=== PATIENT | female | born 1990 | race Caucasian/White ===

== ENCOUNTER 2024-02-19 09:43 | Inpatient (IN) | payer OTHER ==
[2024-02-19] VITALS (29 sets, daily range): BP systolic 103–156; BP diastolic 53–90; PULSE 57–90; TEMP 97.5–98.8
[~2024-02-19] VITALS: Ht 165.1 cm; Wt 99.5 kg
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
[2024-02-19] MEDS ORDERED: LR 500 ML IV ONE (10:30)
[2024-02-19] MEDS ORDERED: LR 1,000 ML IV PRN ×3 (10:30→14:45)
--- NOTE | 2024-02-19 10:45 | NUR ---
RN CALLED TO PT BEDSIDE AT 1030, OBSERVED PT COUGHING FREQUENTLY AND ASKING IF HER "FLUIDS CAN BE SLOWED DOWN I FEEL LIKE I AM DROWNING." THIS RN SLOWS LR DRIP AND ASKS THE PT WHERE SHE IS UNCOMFORTABLE, PT REPORTS HER CHEST FELT HEAVY AND SHE STARTED TO FEEL NAUSEOUS QUICKLY. DIFFICULT TO TRACE FHR AND TOCO DUE TO PT HABITUS AND POSITION. THIS RN TALKS WITH PT ABOUT HOW SHE IS FEELING AND PT EXCLAIMS "IT IS STARTING TO GO AWAY IT FEELS BETTER ALREADY SITTING UP." PT POSITION CHANGED TO LAYING ON HER LEFT SIDE TO TRACE FHR AND CONTRACTIONS. PT VERBALLY UNDERSTANDING AND COUGHING LESS FREQUENT AT 1045
--- NOTE | 2024-02-19 11:15 | NUR ---
THIS RN NOTIFIES OF SVE /3. FHR BASELINE 150'S, NO ACCELS, MINIMAL VARIABILTY, RECURRENT LATE VARIABLES, PT FLUID BOLUS OF 500ML COMPLETED. PT VS STABLE AND CTX Q 4-5 MIN. RESPONDS "LET'S ADMIT THE PT FOR LABOR, I WILL BE IN SOON TO CHECK ON HER."
[2024-02-19] MEDS ORDERED: LR 1,000 ML IV SCH ×2 (11:45→12:45)
[2024-02-19] MEDS ORDERED: Penicillin G Potassium 5,000,000 UNITS in NS 100 ML IV ONE (11:45)
[2024-02-19] MEDS ORDERED: LR & Oxytocin 500 ML IV SCH (11:45)
--- NOTE | 2024-02-19 12:00 | NUR ---
PT AMBULATORY TO BATHROOM WITH THIS RN ASSISTING PT GOWN CHANGE. PT AWAKE AND ALERT X3, DISCONNECTED FROM EFM AND TOCO SO UNABLE TO TRACE FHR AND CONTRACTIONS. PT VS TAKEN ONCE PT BACK IN BED AT 1200, VS STABLE AND AT PT BEDSIDE. DISCUSSES PT LABOR ADMISSTION AND PLAN OF CARE. PT AND PT SPOUSE VERBALLY UNDERSTANDING.
--- NOTE | 2024-02-19 12:15 | NUR ---
PT REPORTING SHE WOULD LIKE EPIDURAL, JAZIEL CHAPMAN CALLED PER THIS RN. NOTIFIED.
[2024-02-19 12:16] LABS: BASO # 0.1 K/mm3 (0.0-0.2); BASO % 0.4 % (0.0-2.0); EOS # 0.2 K/mm3 (0.0-0.7); EOS % 1.7 % (0.0-4.0); GRAN # 9.5 K/mm3 (1.4-6.5); GRAN % 78.9 % (42.2-75.2); HEMOGLOBIN 12.9 g/dl (12.5-16.0); LYMPH # 1.5 K/mm3 (1.2-3.4); LYMPH % 12.6 % (20.0-51.0); MEAN CELL VOLUME 91 fl (80.0-100.0); MEAN CORPUSCULAR HEMOGLOBIN 31 pg (27-31); MEAN CORPUSCULAR HGB CONC 34 g/dl (33.0-37.0); MEAN PLATELET VOLUME 11.8 fl (7.4-10.4); MONO # 0.7 K/mm3 (0.1-0.6); MONO % 5.7 % (1.7-9.3); PLATELET COUNT 199 K/mm3 (130-400); RED BLOOD COUNT 4.19 M/mm3 (4.10-5.30); REDCELL DISTRIBUTION WIDTH-CV 13.2 % (11.5-14.5)
[2024-02-19] MEDS ORDERED: Ondansetron 4 MG/2 ML VIAL IV SCH (12:45)
--- NOTE | 2024-02-19 12:45 | NUR ---
1233 AT PT BEDSIDE DISCUSSING NON-REASSURING HEART TONES AND NEXT PLAN OF CARE FOR LABOR WITH PT AND PT SPOUSE. DISCUSSES OPTIONS AND CONCERNS WITH HEART TONES AND LEAVES PT ROOM TO LET PT DISCUSS OPTIONS WITH PT SPOUSE. THIS RN REMAINS AT PT BEDSIDE TO BEGIN SECOND LR FLUID BAG AND MONITOR FHR. 1240 PT AND PT SPOUSE DECIDE ON SECTION AFTER DISCUSSING OPTIONS WITH . , CHARGE NURSE, JAZIEL AUTOMATIC QUILLING MACHINE OPERATOR, AND NURSERY NURSE NOTIFIED OF PT DECISION AND PT PREPAIRED FOR PRIMARY SECTION.
[2024-02-19] MEDS ORDERED: Ondansetron 4 MG/2 ML VIAL ONE (13:26)
[2024-02-19] MEDS ORDERED: dexAMETHasone 10 MG/ML VIAL ONE (13:26)
[2024-02-19] MEDS ORDERED: Oxytocin 10 UNITS/ML VIAL ONE (13:26)
[2024-02-19] MEDS ORDERED: Ketorolac 30 MG/ML VIAL ONE (13:26)
[2024-02-19] MEDS ORDERED: NS 10 ML IV ONE (13:26)
[2024-02-19] MEDS ORDERED: LR 1,000 ML IV ONE (13:38)
[2024-02-19] MEDS ORDERED: oxyCODONE 5 MG TAB PO PRN (14:15)
[2024-02-19] MEDS ORDERED: Naloxone 0.4 MG/ML VIAL IV PRN ×2 (14:15→14:45)
[2024-02-19] MEDS ORDERED: Loratadine 10 MG TAB PO PRN ×2 (14:15→14:45)
[2024-02-19] MEDS ORDERED: Ondansetron 4 MG/2 ML VIAL IV PRN ×2 (14:15→14:45)
[2024-02-19] MEDS ORDERED: Measles/Mumps/Rubella Virus Vaccine Live w Diluent 0.5 ML VIAL SQ SCH ×2 (14:15→14:45)
[2024-02-19] MEDS ORDERED: Magnes Hydrox (MOM) 80 MG/ML 30 ML CUP PO PRN ×2 (14:15→14:45)
[2024-02-19] MEDS ORDERED: Acetaminophen 500 MG TAB PO SCH (14:15)
[2024-02-19] MEDS ORDERED: Penicillin G Potassium 2,500,000 UNITS in NS 100 ML IV SCH (15:38)
[2024-02-19] MEDS ORDERED: Sennosides/Docusate 8.6-50 MG TAB PO SCH ×2 (17:00)
--- NOTE | 2024-02-19 19:37 | NUR ---
THIS RN UPDATES PT AND PT SPOUSE ON ROLES ADMISSION STATUS AND CHANGE IN PLAN OF CARE. PT VERBALLY UNDERSTANDING AND UP TO ABULATE TO BATHROOM, PT DISCONNECTED FROM EFM AND TOCO, PT AWAKE AND ALERT X3
[2024-02-19] MEDS ORDERED: Ibuprofen 800 MG TAB PO SCH (20:10)
--- NOTE | 2024-02-19 20:45 | NUR ---
pt able to move feet, bend knees. Pt assisted to move to edge of bed. Minimal assist of 1 to stand at bedside. Unable to lock legs or pick either foot off floor. Assisted to bettie back back on edge of bed. Did sit to stand 1 more time, pt wobbly. Back onto bed without difficulty
[2024-02-19] MEDS ORDERED: traZODone 50 MG TAB PO PRN ×2 (21:00)
[2024-02-20 03:30] VITALS: BP 108/57; PULSE 64; TEMP 98
[2024-02-20 07:50] VITALS: BP 125/71; PULSE 76; TEMP 98.2
[2024-02-20] MEDS ORDERED: Sertraline 50 MG TAB PO SCH (09:07)
--- NOTE | 2024-02-20 09:31 | NUR ---
Initial visit; Patient occupied. Paper Slitter left note offering congratulations and God's blessings for the of their daughter.Paper Slitter thanked family for choosing [facility] and left information regarding the availability of Spiritual Care at our Hospital.
--- NOTE | 2024-02-20 09:33 | NUR ---
Initial visit attempt; Nurse with patient, Baggage Security Checker left card offering congratulations and God's blessings for the of their daughter as well as Spiritual Care.
[2024-02-20] MEDS ORDERED: PERCOCET 325 MG1 TA2 PO (13:29)
[2024-02-20] MEDS ORDERED: MOTRIN 800800 MG/TAB PO (13:29)
--- NOTE | 2024-02-20 13:53 | NUR ---
RESPIRATORY THERAPY CONTACTED PATIENT DID NOT HAVE INCENTIVE SPIROMETER AVAILABLE. SPOKE TO EDGAR WHO REPORTED HE WOULD BRING ONE OVER FOR HER.
[2024-02-20 16:19] VITALS: BP 123/78; PULSE 76; TEMP 98.4
[2024-02-20 20:15] VITALS: BP 116/68; PULSE 67; TEMP 98.4
[2024-02-20] MEDS ORDERED: Acetaminophen 500 MG TAB PO SCH (22:30)
[2024-02-21 08:00] VITALS: BP 107/69; PULSE 79; TEMP 98.3
== END 2024-02-21 10:50 | disposition home or self-care (01) | DRG 788 ==
LOC: LDRO 09:43 → OB 11:38 → LDR 11:38 → OB 15:00
PROVIDERS: Obstetrics & Gynecology; ADMIT Obstetrics & Gynecology
PROC: 10D00Z1 Extraction of Products of Conception, Low, Open Approach (ICD-10-PCS; principal; 2024-02-19)
DX: O24.420 Gestational diabetes mellitus in childbirth, diet controlled (principal); Z3A.39 39 weeks gestation of pregnancy; Z37.0 Single live birth; O77.0 Labor and delivery complicated by meconium in amniotic fluid; F32.A Depression, unspecified; O99.344 Other mental disorders complicating childbirth; O99.824 Streptococcus B carrier state complicating childbirth; O76 Abnormality in fetal heart rate and rhythm complicating labor and delivery
CPT/HCPCS: A9284; J0665; J0690; J1100; J1885; J2405; J2540; J2590; J7120